=== PATIENT | female | born 1995 | race Two or more races ===

== ENCOUNTER 2020-08-17 20:31 | Emergency (ER) | payer SELFPAY ==
[~2020-08-17] VITALS: Ht 157.5 cm; Wt 79.8 kg
[2020-08-17 21:00] VITALS: BP 129/89
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
[2020-08-17] MEDS ORDERED: Ketorolac 30mg Inj IM ONE (21:15)
[2020-08-17] MEDS ORDERED: Methocarbamol 500mg tab ORAL ONE (21:15)
[2020-08-17] MEDS ORDERED: LIDODERM700 M1 TOPIC (21:18)
[2020-08-17] MEDS ORDERED: IBUPROFEN600 M1 ORAL (21:18)
[2020-08-17] MEDS ORDERED: ROBAXIN-750750 MG PO (21:18)
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
[2020-08-17 21:30] VITALS: BP 125/85
--- NOTE | 2020-08-17 21:30 | NUR ---
ER DISCHARGE NOTE: Patient is cleared to be discharged per ERMD, pt is aox4, on room air, with stable vital signs. pt was given dc and prescription instructions, pt was able to verbalize understanding, pt id band removed. pt is able to ambulate with steady gait. pt took all belongings. Pt left in a private car
== END 2020-08-17 21:30 | disposition home or self-care (01) ==
LOC: EMR 21:00
DX: S29.012A Strain of muscle and tendon of back wall of thorax, initial encounter (principal); V43.52XA Car driver injured in collision with other type car in traffic accident, initial encounter; Y92.411 Interstate highway as the place of occurrence of the external cause
CPT/HCPCS: 96372; 99283; J1885